=== PATIENT | female | born 1985 | race Caucasian/White ===

== ENCOUNTER 2020-03-14 21:49 | Emergency (ER) | payer OTHER ==
[~2020-03-14] VITALS: Ht 167.6 cm; Wt 55.8 kg
[2020-03-14] MEDS ORDERED: LEXAPRO20 MG PO ×2 (21:58→23:44)
[2020-03-14] MEDS ORDERED: CLONAZEPAM 0.50.5 M1 PO (21:58)
[2020-03-14] MEDS ORDERED: NEURONTIN300 MG PO (21:59)
[2020-03-14] MEDS ORDERED: SEROQUEL300 MG PO (21:59)
[2020-03-14] MEDS ORDERED: VISTARIL 25 MG25 M1 PO (21:59)
[2020-03-14 22:44] LABS: ABSOLUTE NEUTROPHILS 4.1 thou/uL (1.4-8.2); BASOPHILS 1.1 % (0.0-2.0); EOSINOPHILS 1.6 % (0.0-3.0); HEMATOCRIT 36.5 % (37.0-47.0); LYMPHOCYTES 38.2 % (24.0-44.0); MCH 33.5 pg (26.0-34.0); MCHC 35.6 g/dL (28.0-37.0); MCV 94.2 fL (80.0-100.0); MONOCYTES 6.3 % (1.0-8.0); PLATELET COUNT 220 thou/uL (150-400); POLYS 52.8 % (36.0-66.0); RBC 3.88 mil/uL (4.20-5.00); RDW 13.6 % (10.5-14.5); WBC 7.7 thou/uL (4.0-11.0)
[2020-03-14 22:51] LABS: CALCIUM 8.9 mg/dL (8.5-10.1); CREATININE 0.9 mg/dL (0.6-1.0); POTASSIUM 4.5 mmol/L (3.5-5.1)
[2020-03-14 22:57] LABS: ALBUMIN 3.9 g/dL (3.4-5.0); TOTAL BILIRUBIN 0.4 mg/dL (0.2-1.0); TOTAL PROTEIN 6.9 g/dL (6.4-8.2)
[2020-03-14] MEDS ORDERED: KLONOPIN1 MG PO (23:44)
[2020-03-14 23:59] VITALS: BP 104/80
== END 2020-03-15 00:10 | disposition home or self-care (01) ==
LOC: ER 21:49
PROVIDERS: Emergency Medicine
DX: M25.551 Pain in right hip (principal); M54.2 Cervicalgia; R10.84 Generalized abdominal pain; F17.210 Nicotine dependence, cigarettes, uncomplicated; Z79.899 Other long term (current) drug therapy; Z88.2 Allergy status to sulfonamides; Z88.8 Allergy status to other drugs, medicaments and biological substances; V43.92XA Unspecified car occupant injured in collision with other type car in traffic accident, initial encounter; Y93.89 Activity, other specified; Y92.89 Other specified places as the place of occurrence of the external cause; Y99.8 Other external cause status

== ENCOUNTER 2020-03-21 00:36 | Emergency (ER) | payer OTHER ==
[~2020-03-21] VITALS: Ht 167.6 cm; Wt 57.1 kg
[~2020-03-21 00:36] MED LIST: CLONAZEPAM 0.50.5 M1 PO; KLONOPIN1 MG PO; LEXAPRO20 MG PO; NEURONTIN300 MG PO; SEROQUEL300 MG PO; VISTARIL 25 MG25 M1 PO
[2020-03-21] MEDS ORDERED: MOBIC15 MG PO (01:02)
[2020-03-21 01:29] VITALS: BP 113/43
== END 2020-03-21 01:30 | disposition home or self-care (01) ==
LOC: ER 00:36
DX: L81.8 Other specified disorders of pigmentation (principal); F17.210 Nicotine dependence, cigarettes, uncomplicated; Z79.899 Other long term (current) drug therapy; Z88.2 Allergy status to sulfonamides; Z88.5 Allergy status to narcotic agent; Z88.8 Allergy status to other drugs, medicaments and biological substances

== ENCOUNTER 2020-11-27 16:33 | Emergency (ER) | payer OTHER ==
[~2020-11-27] VITALS: Ht 167.6 cm; Wt 59.0 kg
[~2020-11-27 16:33] MED LIST changes: +MOBIC15 MG PO
[2020-11-27] MEDS ORDERED: ATIVAN1 M1 PO (16:47)
[2020-11-27] MEDS ORDERED: DESYREL150 MG PO (16:48)
[2020-11-27 17:34] LABS: URINE BILIRUBIN NEGATIVE (Negative); URINE BLOOD 1+ (Negative); URINE CLARITY CLEAR; URINE COLOR YELLOW; URINE GLUCOSE-RANDOM* NEGATIVE (Negative); URINE KETONES 1+ (Negative); URINE LEUKOCYTES-REFLEX NEGATIVE (Negative); URINE NITRITE-REFLEX NEGATIVE (Negative); URINE PROTEIN (DIPSTICK) TRACE (Negative); URINE SPECIFIC GRAVITY >= 1.030 (1.005-1.035); URINE UROBILINOGEN 0.2 E.U./dl (0.2-1.0)
[2020-11-27 17:43] LABS: SQUAMOUS >10 Many /LPF (0-3)
[2020-11-27 17:44] LABS: BACTERIA-REFLEX >30 Many /HPF (None Seen); MUCUS >6 Heavy strn/LPF (None Seen); URINE RBC 3-10 Few /HPF (0-2)
[2020-11-27 17:45] LABS: CASTS None Seen /LPF (None Seen); CRYSTALS None Seen /LPF (None Seen); URINE WBC-REFLEX 0-5 Rare /HPF (0-5)
[2020-11-27 17:50] LABS: AMP/METHAMP Negative (Negative); BARBITURATES Negative (Negative); BENZODIAZEPINES Negative (Negative); COCAINE Negative (Negative); METHADONE Negative (Negative); OPIATES Negative (Negative); PCP Negative (Negative)
[2020-11-27] MEDS ORDERED: XANAX 1 MG TABLE1 MG PO (18:23)
[2020-11-27 18:28] VITALS: BP 101/56
== END 2020-11-27 18:28 | disposition home or self-care (01) ==
LOC: ER 16:33
PROVIDERS: Emergency Medicine
DX: F41.8 Other specified anxiety disorders (principal); F32.9 Major depressive disorder, single episode, unspecified; F17.210 Nicotine dependence, cigarettes, uncomplicated; Z79.899 Other long term (current) drug therapy; Z88.2 Allergy status to sulfonamides; Z88.8 Allergy status to other drugs, medicaments and biological substances

== ENCOUNTER 2020-12-07 20:15 | Emergency (ER) | payer OTHER ==
[~2020-12-07] VITALS: Ht 167.6 cm; Wt 59.0 kg
[~2020-12-07 20:15] MED LIST changes: +ATIVAN1 M1 PO; +DESYREL150 MG PO; +XANAX 1 MG TABLE1 MG PO
[2020-12-07 20:21] VITALS: BP 114/65
== END 2020-12-07 20:47 | disposition left against medical advice (07) ==
LOC: ER 20:15
DX: F41.9 Anxiety disorder, unspecified (principal); F15.90 Other stimulant use, unspecified, uncomplicated; F17.210 Nicotine dependence, cigarettes, uncomplicated; Z79.899 Other long term (current) drug therapy; Z88.2 Allergy status to sulfonamides; Z88.8 Allergy status to other drugs, medicaments and biological substances

== ENCOUNTER 2021-06-07 17:04 | Emergency (ER) | payer OTHER ==
[~2021-06-07] VITALS: Ht 167.6 cm; Wt 59.0 kg
[2021-06-07 17:26] LABS: URINE BILIRUBIN NEGATIVE (Negative); URINE BLOOD TRACE (Negative); URINE CLARITY CLEAR; URINE COLOR YELLOW; URINE GLUCOSE-RANDOM* TRACE (Negative); URINE KETONES NEGATIVE (Negative); URINE LEUKOCYTES-REFLEX NEGATIVE (Negative); URINE NITRITE-REFLEX NEGATIVE (Negative); URINE PROTEIN (DIPSTICK) NEGATIVE (Negative); URINE SPECIFIC GRAVITY 1.025 (1.005-1.035); URINE UROBILINOGEN 0.2 E.U./dl (0.2-1.0)
[2021-06-07 18:22] LABS: ABSOLUTE NEUTROPHILS 3.1 thou/uL (1.4-8.2); BASOPHILS 0.2 % (0.0-2.0); EOSINOPHILS 0.6 % (0.0-3.0); HEMATOCRIT 39.9 % (37.0-47.0); HEMOGLOBIN 13.4 gm/dL (12.0-15.0); LYMPHOCYTES 10.2 % (24.0-44.0); MCH 32.8 pg (26.0-34.0); MCHC 33.7 g/dL (28.0-37.0); MCV 97.5 fL (80.0-100.0); MONOCYTES 9.5 % (1.0-8.0); PLATELET COUNT 149 thou/uL (150-400); POLYS 79.5 % (36.0-66.0); RDW 14.5 % (10.5-14.5); WBC 3.9 thou/uL (4.0-11.0)
[2021-06-07 18:27] LABS: CALCIUM 7.9 mg/dL (8.5-10.1); CREATININE 0.8 mg/dL (0.6-1.0); POTASSIUM 3.6 mmol/L (3.5-5.1)
[2021-06-07 18:33] LABS: ALBUMIN 3.5 g/dL (3.4-5.0); TOTAL BILIRUBIN 0.3 mg/dL (0.2-1.0); TOTAL PROTEIN 6.3 g/dL (6.4-8.2)
[2021-06-07 22:31] VITALS: BP 104/60
== END 2021-06-07 22:45 | disposition home or self-care (01) ==
LOC: ER 17:04
PROVIDERS: Emergency Medicine; Nurse Practitioner
DX: K59.00 Constipation, unspecified (principal); R10.31 Right lower quadrant pain; F41.9 Anxiety disorder, unspecified; F32.9 Major depressive disorder, single episode, unspecified; F17.210 Nicotine dependence, cigarettes, uncomplicated; Z98.890 Other specified postprocedural states; Z86.16 Personal history of COVID-19; Z79.891 Long term (current) use of opiate analgesic; Z79.1 Long term (current) use of non-steroidal anti-inflammatories (NSAID); Z79.899 Other long term (current) drug therapy; Z88.6 Allergy status to analgesic agent; Z88.5 Allergy status to narcotic agent; Z88.2 Allergy status to sulfonamides; Z88.8 Allergy status to other drugs, medicaments and biological substances

== ENCOUNTER 2021-06-12 07:44 | Inpatient (IN) | payer OTHER ==
[~2021-06-12] VITALS: Ht 167.6 cm; Wt 61.9 kg
[2021-06-12] VITALS (7 sets, daily range): BP systolic 100–141; BP diastolic 52–121
[2021-06-12] MEDS ORDERED: XANAX2 MG PO (08:02)
[2021-06-12] MEDS ORDERED: OMEPRAZOLE 20 M20 M1 PO (08:03)
[2021-06-12 08:08] LABS: URINE BILIRUBIN 3+ (Negative); URINE BLOOD TRACE (Negative); URINE CLARITY CLEAR; URINE GLUCOSE-RANDOM* NEGATIVE (Negative); URINE KETONES TRACE (Negative); URINE LEUKOCYTES-REFLEX TRACE (Negative); URINE PROTEIN (DIPSTICK) TRACE (Negative); URINE SPECIFIC GRAVITY >= 1.030 (1.005-1.035)
[2021-06-12 08:09] LABS: ICTOTEST (BILI CONFIRMATORY) Positive (Negative); URINE COLOR AMBER; URINE NITRITE-REFLEX POSITIVE (Negative)
[2021-06-12 08:15] LABS: AMP/METHAMP Negative (Negative); BARBITURATES Negative (Negative); BENZODIAZEPINES POSITIVE (Negative); COCAINE Negative (Negative); METHADONE Negative (Negative); OPIATES Negative (Negative); PCP Negative (Negative)
[2021-06-12 08:22] LABS: CASTS None Seen /LPF (None Seen); CRYSTALS None Seen /LPF (None Seen); SQUAMOUS 0-3 Few /LPF (0-3); URINE RBC 3-10 Few /HPF (NONE SEEN); URINE WBC-REFLEX 0-5 Rare /HPF (0-5)
[2021-06-12 09:05] LABS: HEMATOCRIT 36.5 % (37.0-47.0); HEMOGLOBIN 12.6 gm/dL (12.0-15.0); MCH 32.7 pg (26.0-34.0); MCHC 34.6 g/dL (28.0-37.0); MCV 94.6 fL (80.0-100.0); PLATELET COUNT 130 thou/uL (150-400); RBC 3.86 mil/uL (4.20-5.00); RDW 14.9 % (10.5-14.5); WBC 3.9 thou/uL (4.0-11.0)
[2021-06-12 09:18] LABS: CALCIUM 7.5 mg/dL (8.5-10.1); CREATININE 0.6 mg/dL (0.6-1.0); POTASSIUM 3.4 mmol/L (3.5-5.1)
[2021-06-12 09:20] LABS: APTT 41.7 Seconds (24.5-32.8); INR 1.25; PROTIME 13.5 Seconds (10.5-12.1)
[2021-06-12 09:35] LABS: ALBUMIN 2.7 g/dL (3.4-5.0); TOTAL BILIRUBIN 4.4 mg/dL (0.2-1.0); TOTAL PROTEIN 6.1 g/dL (6.4-8.2)
[2021-06-12 09:58] LABS: ABSOLUTE NEUTROPHILS 2.6 thou/uL (1.4-8.2); ATYPICAL LYMPHS 3 %
[2021-06-12 10:01] LABS: ANISOCYTOSIS SLIGHT; TARGET CELLS OCCASIONAL
[2021-06-12 10:02] LABS: HYPOCHROMASIA SLIGHT
[2021-06-12 14:14] LABS: % SATURATION 74 % (20-39); IRON 130 ug/dL (50-170); TIBC 175 ug/dL (250-450)
[2021-06-12 15:59] LABS: PHOSPHORUS 2.7 mg/dL (2.5-4.9)
[2021-06-12 16:02] LABS: MAGNESIUM 1.9 mg/dL (1.8-2.4)
[2021-06-13 02:06] LABS: GLYCOHEMOGLOBIN (HGB A1C) 5.1 % (4.8-5.6); HAV IgM AB (ANTI-HAV IgM) Positive (Negative); HEPATITIS B SURFACE AG Negative (Negative); HEPATITIS C VIRUS AB <0.1 (0.0-0.9)
[2021-06-13 03:30] VITALS: BP 128/57
[2021-06-13 05:24] LABS: HEMATOCRIT 36.4 % (37.0-47.0); HEMOGLOBIN 12.2 gm/dL (12.0-15.0); MCH 32.4 pg (26.0-34.0); MCHC 33.5 g/dL (28.0-37.0); MCV 96.8 fL (80.0-100.0); PLATELET COUNT 118 thou/uL (150-400); RBC 3.76 mil/uL (4.20-5.00); RDW 15.5 % (10.5-14.5); WBC 2.8 thou/uL (4.0-11.0)
--- NOTE | 2021-06-13 05:24 | NUR ---
RECEIVED THE PATIENT AT 1900H, PATIEN TIS ALERT AND ORIENTED X4.ON ROOM AIR BREATHING SPONTANEOUSLY.NOT IN DISTRESS.HAD COMPLAINTS OF GENERALIZED ABDOMINAL PAIN, PRN MORPHIN EGIVEN.ZOLFRAN ALSO GIVEN FOR COMPLAINTS OF NAUSEA.ALL NEEDS ATTENDED.
[2021-06-13 05:47] LABS: ALBUMIN 2.7 g/dL (3.4-5.0); CALCIUM 7.7 mg/dL (8.5-10.1); CREATININE 0.4 mg/dL (0.6-1.0); MAGNESIUM 1.9 mg/dL (1.8-2.4); PHOSPHORUS 2.8 mg/dL (2.5-4.9); TOTAL BILIRUBIN 4.7 mg/dL (0.2-1.0); TOTAL PROTEIN 5.8 g/dL (6.4-8.2)
[2021-06-13 05:58] LABS: POTASSIUM 4.5 mmol/L (3.5-5.1)
[2021-06-13 07:30] VITALS: BP 122/70
[2021-06-13 11:07] LABS: CERULOPLASMIN 19.3 mg/dL (19.0-39.0)
[2021-06-13 14:51] LABS: ABSOLUTE NEUTROPHILS 1.4 thou/uL (1.4-8.2)
[2021-06-13 14:52] LABS: ANISOCYTOSIS 1+
[2021-06-13 15:30] VITALS: BP 109/69
--- NOTE | 2021-06-13 15:37 | EKG ---
[address] [address] ELECTROCARDIOGRAM REPORT Name: LILLIE PARHAM Room #: 213-P ADM IN M.R.#: [id number] Admission: 06/12/21 Attend Phys: Anyi Cooper MD Discharge: Date of : 83 Report #: [id number] [facility] Test Date: 2021-06-12 Test Time: 15:02:33 Pat Name: LILLIE PARHAM Department: Room: 213 P Gender: F [employer] Counselor: PERLA : 1985 Requested By: Anyi Cooper Order Number: [id number] : Krish Chaidez Measurements Intervals [place] Rate: 61 P: 37 UT: 173 QRS: 51 QRSD: 79 T: 28 QT: 432 QTc: 435 Interpretive Statements Sinus rhythm No previous ECG available for comparison Electronically Signed On 06-13-2021 15:36:52 CDT by Krish Chaidez [email or web address] <ELECTRONICALLY SIGNED> By: Krish Chaidez MD, [facility] 06/13/21 1536 1502 1502 Krish Chaidez MD, FACC /EPI
--- NOTE | 2021-06-13 18:41 | NUR ---
ASSESSMENT CHARTED. PT ALERT AND ORIENTED. VSS. PAIN MED, ANXIETY MED AND DIET ORDER CHANGED PER PT'S REQUEST. PT REPORTED THAT SHE FELT LIKE THE PAIN MED AND ANXIETY MED ARE NOT WORKING FOR HER. DR TORRES NOTIFIED.
[2021-06-13 20:00] VITALS: BP 115/65
[2021-06-14 04:45] VITALS: BP 106/65
[2021-06-14 05:36] LABS: HEMATOCRIT 36.7 % (37.0-47.0); HEMOGLOBIN 12.7 gm/dL (12.0-15.0); MCH 32.7 pg (26.0-34.0); MCHC 34.5 g/dL (28.0-37.0); MCV 94.7 fL (80.0-100.0); RBC 3.88 mil/uL (4.20-5.00); RDW 15.3 % (10.5-14.5); WBC 3.7 thou/uL (4.0-11.0)
[2021-06-14 06:03] LABS: ALBUMIN 2.9 g/dL (3.4-5.0); CALCIUM 8.2 mg/dL (8.5-10.1); CREATININE 0.6 mg/dL (0.6-1.0); POTASSIUM 3.5 mmol/L (3.5-5.1); TOTAL PROTEIN 6.7 g/dL (6.4-8.2)
--- NOTE | 2021-06-14 07:57 | NUR ---
RECEIVED PATIENT AT 1900H.PATIENT IS ALERT AND ORIENTED X4.ON ROOM AIR BREATHING SPONTANEOUSLY.STILL HAD EPISODES OF ABDOMINAL PAIN, PRN PAIN MEDICATION GIVEN OREDERD.ALL NEEDS ATTENDED.
[2021-06-14 08:31] VITALS: BP 100/63
[2021-06-14 11:49] VITALS: BP 112/60
--- NOTE | 2021-06-14 15:28 | NUR ---
Case discussed with the care team. Cm role introduced to pt at bedside. Pt indicates hx of severe anxiety and is now seeing a psych/therapist and cm at [facility]. She has two minor children at home ages 6/7 who are being cared for by her boyfriend Jamal while she is here. Her 18 year old dtr and boyfriend just moved back in with them as well. Lots of stress at home. She has not worked since last and reports due to lots of different medical issues. Hep A info provided to the pt. Encouragement given to call her children's mirror painter regarding their hep A vaccines and if they need to be tested/or seen in the office. She has not been sending them to school either concerned that they are contagious. She is anxious to go home but understands she needs to increase po intake and have her labs rechecked tomorrow. Support provided. Aquacultural Worker Supervisor also spoke with pt's [facility] CM Noemi [phone] per the pt's request. Noemi is trying to get an updated list of pt's home psych meds faxed to the unit as the pt is not on her antidepressant. Case discussed with the care team.
[2021-06-14 15:43] VITALS: BP 120/44
[2021-06-14 18:06] LABS: ANTI-EBNA >600.0 U/mL (0.0-17.9); ANTI-VCA/IgM 53.1 U/mL (0.0-35.9)
[2021-06-14 19:51] LABS: INR 1.31; PROTIME 14.1 Seconds (10.5-12.1)
--- NOTE | 2021-06-14 20:17 | NUR ---
took over care for this patient at 0700. patient resting in bed; complaints of generalized abdominal pain and lower left back pain especially when having bowel movement. administered PRN pain medication; patient reports feeling nauseous after administereing PRN pain medication, fentanyl. patient reports anxiety due to current health situation and not being home with her kids; patient reports partner is taking care of kids. patient became tearful when discussing her home situation but does feel safe at home when asked by this nurse. patient denies any further needs at this time. patient very time consuming and spent significant time encouraging and providing education.
[2021-06-14 20:44] VITALS: BP 110/72
[2021-06-14 23:15] LABS: URINE BILIRUBIN 3+ (Negative); URINE BLOOD TRACE (Negative); URINE CLARITY CLEAR; URINE COLOR ORANGE; URINE GLUCOSE-RANDOM* NEGATIVE (Negative); URINE KETONES 3+ (Negative); URINE LEUKOCYTES NEGATIVE (Negative); URINE NITRITE NEGATIVE (Negative); URINE PROTEIN (DIPSTICK) TRACE (Negative); URINE SPECIFIC GRAVITY 1.025 (1.005-1.035)
[2021-06-15 04:46] VITALS: BP 103/63
[2021-06-15 05:32] LABS: ALBUMIN 2.6 g/dL (3.4-5.0); CALCIUM 8.1 mg/dL (8.5-10.1); CREATININE 0.7 mg/dL (0.6-1.0); POTASSIUM 3.7 mmol/L (3.5-5.1); TOTAL BILIRUBIN 7.7 mg/dL (0.2-1.0); TOTAL PROTEIN 6.1 g/dL (6.4-8.2)
--- NOTE | 2021-06-15 06:05 | NUR ---
NO SIGNIFICANT CHANGES DURING THE NIGHT. PT WAS VERY ANXIOUS BEFORE BEDTIME. PRN ALPRAZOLAM GIVEN WITH GOOD RESULTS. PT C/O ABDOMAINAL PAIN AND HEADACHE. PRN PAIN MEDICATIONS GIVEN INDICATED - SEE EMAR. ZOFRAN GIVEN ONCE FOR C/O NAUSEA. PT IS UP AD DIDIER TO BTR TO VOID. SHE STATED SHE HAD A BOWEL MOVEMENT DURING THE NIGHT. VSS. AFEBRILE. PROGRESSING SLOWLY TOWARD POC GOALS. WILL GIVE REPORT TO ONCOMING NURSE.
[2021-06-15 07:29] VITALS: BP 108/60
[2021-06-15 11:08] LABS: HIV ANTIBODY Non Reactive (Non Reactive)
[2021-06-15] MEDS ORDERED: IBUPROFEN 400400 M2 PO (15:12)
[2021-06-15] MEDS ORDERED: OXYCODONE HCL 55 MG PO (15:12)
[2021-06-15] MEDS ORDERED: NICOTINE1 EACH TRANSDERM (15:12)
[2021-06-15 15:32] VITALS: BP 108/60
--- NOTE | 2021-06-15 16:20 | NUR ---
Pt dcing home this evening. [facility] info provided for walkin clinic f/u. Critical Power Install Technician also notified her [facility] CM Noemi of her dc and f/u care needs. She will be calling her. Message left with her pcp Dr. Vasquez's nurse who called back and stated they may have an open appt in June but the pt will need to call them to confirm that she will show up as she is often a no show to appointments. Message left for GI as well to see if she can f/u with Dr Morales.
--- NOTE | 2021-06-15 17:42 | NUR ---
ASSESSMENT CHARTED - MEDS PER OCT - GIVEN MOTRIN AND FENTANYL FOR CO'S OF PAIN WITH MIN-MOD EFFECT PT STATES. PILY SMALL AMOUNTS OF DIET AND FLUIDS. UP AD DIDIER IN ROOM. PT HOME THIS EVEINGIN. INSTRUCTIOON RE HOME MEDS/ CARE AND FOLLOW UP GIVEN TO PATIENT - STATED UNDERSTANDING OF INSTRUCTION GIVEN. PT LEFT UNIT VIA WHEELCHAIR, HOME VIA CAB . NO CO'S AT TIME OF D/C.
== END 2021-06-15 17:44 | disposition home or self-care (01) | DRG 442 ==
LOC: ER 07:44 → EROBS 10:21 → 2N 10:21
PROVIDERS: Emergency Medicine; Internal Medicine; Internal Medicine Gastroenterology; Nurse Practitioner; Specialist; ADMIT Internal Medicine; ATTEND Internal Medicine
DX: B15.9 Hepatitis A without hepatic coma (principal); N39.0 Urinary tract infection, site not specified; D61.818 Other pancytopenia; D68.9 Coagulation defect, unspecified; F41.9 Anxiety disorder, unspecified; F32.9 Major depressive disorder, single episode, unspecified; F17.210 Nicotine dependence, cigarettes, uncomplicated; K29.70 Gastritis, unspecified, without bleeding; E86.0 Dehydration; E83.42 Hypomagnesemia; E87.6 Hypokalemia; F12.90 Cannabis use, unspecified, uncomplicated; F43.10 Post-traumatic stress disorder, unspecified; G89.4 Chronic pain syndrome; R74.01 Elevation of levels of liver transaminase levels; Z79.891 Long term (current) use of opiate analgesic; Z88.2 Allergy status to sulfonamides; Z88.8 Allergy status to other drugs, medicaments and biological substances
CPT/HCPCS: 10081

== ENCOUNTER 2021-06-25 15:46 | Emergency (ER) | payer OTHER ==
[~2021-06-25] VITALS: Ht 167.6 cm; Wt 58.5 kg
[~2021-06-25 15:46] MED LIST changes: +IBUPROFEN 400400 M2 PO; +NICOTINE1 EACH TRANSDERM; +OMEPRAZOLE 20 M20 M1 PO; +OXYCODONE HCL 55 MG PO; +XANAX2 MG PO
[2021-06-25 19:51] LABS: ABSOLUTE NEUTROPHILS 5.4 thou/uL (1.4-8.2); BASOPHILS 1.1 % (0.0-2.0); EOSINOPHILS 0.6 % (0.0-3.0); HEMATOCRIT 39.4 % (37.0-47.0); HEMOGLOBIN 13.3 gm/dL (12.0-15.0); LYMPHOCYTES 17.7 % (24.0-44.0); MCH 32.3 pg (26.0-34.0); MCHC 33.9 g/dL (28.0-37.0); MCV 95.4 fL (80.0-100.0); MONOCYTES 7.2 % (1.0-8.0); PLATELET COUNT 160 thou/uL (150-400); POLYS 73.4 % (36.0-66.0); RBC 4.13 mil/uL (4.20-5.00); RDW 18.2 % (10.5-14.5); WBC 7.3 thou/uL (4.0-11.0)
[2021-06-25 20:00] LABS: CALCIUM 8.5 mg/dL (8.5-10.1); CREATININE 0.7 mg/dL (0.6-1.0)
[2021-06-25 20:03] LABS: TOTAL BILIRUBIN 4.3 mg/dL (0.2-1.0)
[2021-06-25 20:07] LABS: INR 1.08; PROTIME 11.7 Seconds (10.5-12.1)
[2021-06-25 20:10] LABS: POTASSIUM 4.1 mmol/L (3.5-5.1)
[2021-06-25 20:11] LABS: TOTAL PROTEIN 8.1 g/dL (6.4-8.2)
[2021-06-25 20:46] LABS: ANISOCYTOSIS 1+
[2021-06-25 20:51] LABS: URINE BILIRUBIN NEGATIVE (Negative); URINE BLOOD NEGATIVE (Negative); URINE CLARITY CLEAR; URINE COLOR YELLOW; URINE GLUCOSE-RANDOM* NEGATIVE (Negative); URINE KETONES NEGATIVE (Negative); URINE LEUKOCYTES-REFLEX NEGATIVE (Negative); URINE NITRITE-REFLEX NEGATIVE (Negative); URINE PROTEIN (DIPSTICK) NEGATIVE (Negative)
[2021-06-25 21:03] LABS: SSA (PROTEIN CONFIRMATORY) NEGATIVE (Negative)
[2021-06-25] MEDS ORDERED: ZOFRAN ODT4 MG PO (21:43)
[2021-06-25] MEDS ORDERED: OXYCODONE HCL 55 MG PO (21:51)
[2021-06-25 23:06] VITALS: BP 97/55
== END 2021-06-25 23:09 | disposition home or self-care (01) ==
LOC: ER 15:46
PROVIDERS: Nurse Practitioner Family
DX: B15.9 Hepatitis A without hepatic coma (principal); Z20.822 Contact with and (suspected) exposure to COVID-19; R19.7 Diarrhea, unspecified; R11.2 Nausea with vomiting, unspecified; F32.9 Major depressive disorder, single episode, unspecified; F41.9 Anxiety disorder, unspecified; F17.210 Nicotine dependence, cigarettes, uncomplicated; F12.90 Cannabis use, unspecified, uncomplicated; Z79.891 Long term (current) use of opiate analgesic; Z79.1 Long term (current) use of non-steroidal anti-inflammatories (NSAID); Z79.899 Other long term (current) drug therapy; Z88.6 Allergy status to analgesic agent; Z88.5 Allergy status to narcotic agent; Z88.2 Allergy status to sulfonamides; Z88.8 Allergy status to other drugs, medicaments and biological substances

== ENCOUNTER 2021-08-30 21:14 | Emergency (ER) | payer OTHER ==
[~2021-08-30] VITALS: Ht 167.6 cm; Wt 57.1 kg
[~2021-08-30 21:14] MED LIST changes: +ZOFRAN ODT4 MG PO
[2021-08-30 21:40] VITALS: BP 120/74
== END 2021-08-30 23:43 | disposition left against medical advice (07) ==
LOC: ER 21:14
DX: R06.02 Shortness of breath (principal); Z53.21 Procedure and treatment not carried out due to patient leaving prior to being seen by health care provider

== ENCOUNTER 2021-09-01 18:08 | Emergency (ER) | payer OTHER ==
[~2021-09-01] VITALS: Ht 167.6 cm; Wt 58.5 kg
[2021-09-02 00:13] LABS: HEMATOCRIT 43.8 % (37.0-47.0); HEMOGLOBIN 14.7 gm/dL (12.0-15.0); MCH 34.1 pg (26.0-34.0); MCHC 33.4 g/dL (28.0-37.0); RBC 4.29 mil/uL (4.20-5.00); RDW 13.6 % (10.5-14.5); WBC 7.9 thou/uL (4.0-11.0)
[2021-09-02 00:24] LABS: CALCIUM 9.3 mg/dL (8.5-10.1); CREATININE 0.7 mg/dL (0.6-1.0); POTASSIUM 3.2 mmol/L (3.5-5.1)
[2021-09-02] MEDS ORDERED: KLOR-CON 1010 MEQ PO (00:36)
[2021-09-02 01:22] VITALS: BP 132/77
== END 2021-09-02 01:43 | disposition home or self-care (01) ==
LOC: ER 18:08
PROVIDERS: Emergency Medicine
DX: E87.6 Hypokalemia (principal); R20.2 Paresthesia of skin; F32.9 Major depressive disorder, single episode, unspecified; F41.9 Anxiety disorder, unspecified; F17.210 Nicotine dependence, cigarettes, uncomplicated; Z98.51 Tubal ligation status; Z79.891 Long term (current) use of opiate analgesic; Z79.899 Other long term (current) drug therapy; Z88.2 Allergy status to sulfonamides; Z88.6 Allergy status to analgesic agent; Z88.8 Allergy status to other drugs, medicaments and biological substances